=== PATIENT | female | born 1970 | race American Indian/Alaskan Native ===

== ENCOUNTER 2018-06-17 05:25 | Emergency (ER) | payer MEDICAID ==
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
[2018-06-17 06:04] LABS: CHLORIDE,CL 105 mmol/L (98-107); SODIUM,NA 138 mmol/L (136-145)
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
== END 2018-06-17 07:57 | disposition home or self-care (01) ==
LOC: MW.ED 05:25
DX: S06.0X9A Concussion with loss of consciousness of unspecified duration, initial encounter (principal); S40.022A Contusion of left upper arm, initial encounter; S60.222A Contusion of left hand, initial encounter; S50.02XA Contusion of left elbow, initial encounter; S60.221A Contusion of right hand, initial encounter; S40.021A Contusion of right upper arm, initial encounter; S00.03XA Contusion of scalp, initial encounter; I10 Essential (primary) hypertension; E11.9 Type 2 diabetes mellitus without complications; F41.9 Anxiety disorder, unspecified; F17.210 Nicotine dependence, cigarettes, uncomplicated; Y04.8XXA Assault by other bodily force, initial encounter; Z79.899 Other long term (current) drug therapy
CPT/HCPCS: 36415; 70450; 70450-26; 71045; 71045-26; 72125; 72125-26; 73060-26-RT; 73060-RT; 73080-26-RT; 73080-RT; 73090-26-RT; 73090-RT; 73130-26-RT; 73130-RT; 73503-26-RT; 73503-RT; 80053; 84703; 85025; 85610; 93005; 99284; 99285-25